=== PATIENT | female | born 1940 | race Caucasian/White ===

== ENCOUNTER 2023-01-10 15:08 | Emergency (ER) | payer MEDICARE, OTHER ==
[~2023-01-10] VITALS: Ht 154.9 cm; Wt 51.8 kg
[~2023-01-10 15:08] MED LIST: HYDR-4383 PO; THYROXINE
[2023-01-10 15:47] LABS: BASOPHILS % (AUTO) 0.3 % (0-1); EOSINOPHILS % (AUTO) 0.7 % (0-6); HEMATOCRIT 39.8 % (35.0-45.0); HEMOGLOBIN 13.4 g/dl (12.0-16.0); LYMPHOCYTES # (AUTO) 2.1 X10'3 (1.1-4.8); LYMPHOCYTES % (AUTO) 36.2 % (21-51); MEAN CORPUSCULAR HEMOGLOBIN 30.3 PG (27.0-31.0); MEAN CORPUSCULAR HGB CONC 33.6 g/dL (33.0-36.5); MEAN CORPUSCULAR VOLUME 90.2 FL (78-98); MEAN PLATELET VOLUME 7.4 FL (7.4-10.4); MONOCYTES # (AUTO) 0.3 X10'3 (0-0.9); MONOCYTES % (AUTO) 5.4 % (2-12); NEUTROPHILS # (AUTO) 3.3 X10'3 (1.8-7.7); NEUTROPHILS % (AUTO) 57.4 % (42-75); PLATELET COUNT 295 X10'3 (140-440); RED BLOOD COUNT 4.42 X10'6 (4.20-5.60); RED CELL DISTRIBUTION WIDTH 14.3 % (11.5-14.5); WHITE BLOOD COUNT 5.8 X10'3 (4.5-11.0)
[2023-01-10 16:02] LABS: ALANINE AMINOTRANSFERASE 19 U/L (12-78); ALBUMIN 3.9 G/DL (3.4-5.0); ALBUMIN/GLOBULIN RATIO 1.2 (1.1-1.5); ALKALINE PHOSPHATASE 87 IU/L (46-116); ANION GAP 8 (8-16); ASPARTATE AMINO TRANSFERASE 21 U/L (10-37); BILIRUBIN,TOTAL 0.5 MG/DL (0.1-1.0); BLOOD UREA NITROGEN 13 MG/DL (7-18); BUN/CREATININE RATIO 23.6 (10.0-20.0); CALCIUM 9.1 MG/DL (8.5-10.1); CHLORIDE 106 MMOL/L (99-107); CREATININE 0.55 MG/DL (0.40-0.90); GLUCOSE 153 MG/DL (70-104); POTASSIUM 3.7 MMOL/L (3.5-5.1); SODIUM 142 MMOL/L (135-145); TOTAL CARBON DIOXIDE 27.9 MMOL/L (24-32); TOTAL PROTEIN 7.2 G/DL (6.4-8.2); eGFR > 90 ML/MIN
[2023-01-10 16:10] LABS: MAGNESIUM 1.8 MG/DL (1.5-2.4)
[2023-01-10 17:05] VITALS: BP 136/53
== END 2023-01-10 18:43 | disposition home or self-care (01) ==
LOC: ER 15:09
DX: M79.602 Pain in left arm (principal); R68.84 Jaw pain; K21.9 Gastro-esophageal reflux disease without esophagitis; E03.9 Hypothyroidism, unspecified; Z79.899 Other long term (current) drug therapy
CPT/HCPCS: 36415; 71045; 80053; 83735; 83880; 84484; 85025; 93005; 99285

== ENCOUNTER 2025-02-05 13:01 | Emergency (ER) | payer MEDICARE, OTHER ==
[~2025-02-05] VITALS: Ht 157.5 cm; Wt 49.1 kg
[2025-02-05] MEDS ORDERED: acetaminophen 325mg tablet PO ONE (13:30)
[2025-02-05] MEDS: acetaminophen 325mg tablet PO ONE (13:53)
[2025-02-05] MEDS: oxyCODONE IR 5mg (immed. release) tablet PO ONE (13:53)
[2025-02-05] MEDS ORDERED: OXYC-658 PO (13:54)
[2025-02-05 14:02] VITALS: BP 140/55; PULSE 55; RESP 16; O2SAT 98
== END 2025-02-05 14:13 | disposition home or self-care (01) ==
LOC: ER 13:01
DX: S42.211A Unspecified displaced fracture of surgical neck of right humerus, initial encounter for closed fracture (principal); M19.90 Unspecified osteoarthritis, unspecified site; E03.9 Hypothyroidism, unspecified; K21.9 Gastro-esophageal reflux disease without esophagitis; W19.XXXA Unspecified fall, initial encounter; Y93.01 Activity, walking, marching and hiking; Y92.89 Other specified places as the place of occurrence of the external cause; Y99.8 Other external cause status
CPT/HCPCS: 73030; 99284; A4565

== ENCOUNTER 2025-02-18 08:12 | Outpatient (CLI) | payer MEDICARE, OTHER ==
[~2025-02-18 08:12] MED LIST changes: +OXYC-658 PO
--- NOTE | 2025-02-18 09:37 | VASCULAR REPORT ---
EXAM: VASC VL VENOUS DATE OF SERVICE: 02/18/2025 08:31 AM ORDERING PHYSICIAN: MAN SAN REASON FOR EXAM: Right upper extremity pain and swelling. TECHNIQUE: Duplex Doppler evaluation of the deep venous systems of right lower neck and right upper extremity veins including color Doppler and spectral/pulsed waveform analysis was performed. COMPARISON: None FINDINGS: The internal jugular vein demonstrates appropriate compressibility and waveform variability . The subclavian vein is patent on color Doppler evaluation without intraluminal thrombus and demonstra mae waveform variability . The visualized portion of the brachiocephalic vein is patent on color Doppler evaluation without intr aluminal thrombus and demonstrates waveform variability . The axillary vein demonstrates appropriate compressibility and waveform variability . The brachial veins demonstrate appropriate compressibility and patency on Doppler evaluation. The radial vein shows doppler patency. The ulnar vein shows doppler patency. The basilic vein demonstrates appropriate compressibility and patency on Doppler evaluation. The cephalic vein demonstrates appropriate compressibility and patency on Doppler evaluation. The contralateral subclavian vein is patent. IMPRESSION: No evidence of DVT or SVT.
== END 2025-02-18 23:59 | disposition home or self-care (01) ==
LOC: VAS 08:12
PROVIDERS: ATTEND Nurse Practitioner
DX: S42.293A Other displaced fracture of upper end of unspecified humerus, initial encounter for closed fracture (principal); M79.89 Other specified soft tissue disorders; M79.641 Pain in right hand; X58.XXXA Exposure to other specified factors, initial encounter; Y93.9 Activity, unspecified; Y92.89 Other specified places as the place of occurrence of the external cause; Y99.8 Other external cause status
CPT/HCPCS: 93971